=== PATIENT | male | born 1960 | race Caucasian/White ===

== ENCOUNTER 2017-07-27 11:54 | Inpatient (IN) | payer MEDICARE, MEDICAID ==
[~2017-07-27] VITALS: Ht 172.7 cm; Wt 107.1 kg
[~2017-07-27 11:54] MED LIST: ASPI-867 PO; ATOR-2 PO; CLOP75TA16 PO; COMP1EAC MC; CPAP; GABA300S PO; HYDR-3511; INSU100C11 SQ; LANS30CA52; LISI2.5T47 PO; METF10002 PO; PROSOL IH; PROT40 PO; TERA2CAP4 PO; VICTOZA PO; proair hfa
[2017-07-27] MEDS ORDERED: DILTIAZEM HCL 5MG/ML 5ML VIAL IV ONE (13:00)
[2017-07-27] MEDS ORDERED: CALCIUM GLUCONATE 100MG/ML 10ML VIAL IV ONE (13:00)
[2017-07-27] MEDS ORDERED: DILTIAZEM HCL 125 MG in DEXT 5% WATER 100 ML IV ONE (13:00)
[2017-07-27] MEDS ORDERED: CALCIUM GLUCONATE 1,000 MG in DEXTROSE 5% WATER 50 ML IV SCH (13:30)
[2017-07-27] MEDS ORDERED: DILTIAZEM HCL 125 MG in DEXT 5% WATER 100 ML IV SCH (13:30)
[2017-07-27] MEDS ORDERED: MORPHINE SULFATE 4 MG/ML CPJ (NOT FOR IM USE) IV ONE ×2 (14:00→18:00)
[2017-07-27 14:53] LABS: HEMATOCRIT 40.2 % (42.0-52.0); HEMOGLOBIN 13.7 g/dL (14.0-18.0); MEAN CORPUSCULAR HEMOGLOBIN 29.6 pg (28.0-32.0); MEAN CORPUSCULAR VOLUME 87.1 fL (80.0-94.0); PLATELET 207 x1000/uL (130-400); RED BLOOD CELL COUNT 4.62 mill/uL (4.7-6.1); RED CELL DISTRIBUTION WIDTH 14.1 % (11.6-14.6)
[2017-07-27 14:57] LABS: PARTIAL THROMBOPLASTIN TIME 28.3 sec (23.4-31.0); PROTHROMBIN TIME 10.8 sec (9.4-11.6)
[2017-07-27 15:06] LABS: CARBON DIOXIDE 26 mEq/L (21-32); CHLORIDE 106 mEq/L (98-107); TROPONIN I 0.21 ng/mL (0.00-0.04)
[2017-07-27 16:30] LABS: *AMPHETAMINES SCREEN URINE NEGATIVE (NEGATIVE); *BARBITURATES SCREEN URINE NEGATIVE (NEGATIVE); *BENZODIAZEPINES SCREEN URINE PRESUMTIVE POSITIVE (NEGATIVE); *COCAINE SCREEN URINE NEGATIVE (NEGATIVE); CANNABINOID URINE SCREEN PRESUMTIVE POSITIVE (NEGATIVE); METHADONE URINE SCREEN NEGATIVE (NEGATIVE); OPIATES URINE SCREEN PRESUMTIVE POSITIVE (NEGATIVE); PHENCYCLIDINE URINE SCREEN NEGATIVE (NEGATIVE)
[2017-07-27] MEDS: MORPHINE SULFATE 4 MG/ML CPJ (NOT FOR IM USE) IV PRN (17:07)
[2017-07-27] MEDS ORDERED: METOPROLOL TARTRATE 5MG/5ML VIAL IV ONE (18:00)
[2017-07-27] MEDS ORDERED: ASPIRIN 325MG EC TABLET PO ONE (18:00)
[2017-07-27] MEDS ORDERED: ATORVASTATIN CALCIUM 40MG TABLET PO SCH (21:00)
[2017-07-27] MEDS ORDERED: IPRATROPIUM/ALBUTEROL 0.5-3(2.5)MG/3ML NEB INH PRN (22:15)
[2017-07-27] MEDS ORDERED: ACETAMINOPHEN 325MG TABLET PO PRN (22:15)
[2017-07-27] MEDS: METOPROLOL TARTRATE 25MG TABLET PO SCH (22:21)
[2017-07-27] MEDS ORDERED: INSULIN REGULAR (HUMULIN R) 300UNITS/3ML SUBCUT NR (22:30)
[2017-07-27 23:39] VITALS: BP 126/75
[2017-07-28] VITALS (12 sets, daily range): BP systolic 88–130; BP diastolic 36–80
[2017-07-28] MEDS ORDERED: ENOXAPARIN 100MG/ML SYR SUBCUT SCH
[2017-07-28] MEDS ORDERED: ENOXAPARIN 120MG/0.8ML SYR SUBCUT SCH
[2017-07-28] MEDS ORDERED: DEXTROSE 50% WATER 50ML SYRINGE IV PRN (00:15)
[2017-07-28] MEDS: IPRATROPIUM/ALBUTEROL 0.5-3(2.5)MG/3ML NEB HHN SCH ×4 (00:26→19:39)
[2017-07-28] MEDS: MORPHINE SULFATE 4 MG/ML CPJ (NOT FOR IM USE) IV PRN ×2 (00:28→06:38)
[2017-07-28] MEDS: BLOOD SUGAR DIAGNOSTIC STRIP TEST SCH ×4 (05:45→21:00)
[2017-07-28] MEDS: PANTOPRAZOLE 40MG DR TABLET PO SCH (05:47)
[2017-07-28] MEDS ORDERED: DILTIAZEM HCL 60MG TABLET PO SCH (06:00)
[2017-07-28 07:08] LABS: BASOPHILS % 0.5 % (0.0-2.0); EOSINOPHILS % 2.7 % (0.0-5.0); HEMATOCRIT. 40.9 % (42.0-52.0); HEMOGLOBIN. 13.8 g/dL (14.0-18.0); LYMPHOCYTES % 26.5 % (20.0-50.0); MEAN CORPUSCULAR HEMOGLOBIN 29.8 pg (28.0-32.0); MEAN CORPUSCULAR VOLUME 88.3 fL (80.0-94.0); MEAN PLATELET VOLUME 8.6 fl (7.4-10.4); MONOCYTES % 8.9 % (2.0-8.0); NEUTROPHILS % 61.4 % (40.0-76.0); PLATELET 186 x1000/uL (130-400); RED BLOOD CELL COUNT 4.63 mill/uL (4.7-6.1); RED CELL DISTRIBUTION WIDTH 14.1 % (11.6-14.6)
[2017-07-28] MEDS: INSULIN LISPRO 100 UNITS/ML SUBCUT SCH ×4 (08:13→22:50)
[2017-07-28] MEDS: ASPIRIN 81MG EC TABLET PO SCH (08:14)
[2017-07-28] MEDS: GABAPENTIN 400MG CAPSULE PO SCH ×2 (08:15→17:48)
[2017-07-28] MEDS: METOPROLOL TARTRATE 25MG TABLET PO SCH (08:17)
[2017-07-28 08:22] LABS: CARBON DIOXIDE 24 mEq/L (21-32); CHLORIDE 108 mEq/L (98-107); TROPONIN I 0.24 ng/mL (0.00-0.04)
[2017-07-28] MEDS ORDERED: CLOPIDOGREL 75MG TABLET PO SCH ×2 (09:00)
[2017-07-28] MEDS ORDERED: INFLUENZA VIRUS VACCINE 0.5ML SYR IM ONE (10:00)
[2017-07-28] MEDS: INSULIN DETEMIR UD 100 UNITS/ML SYR SUBCUT SCH ×2 (10:39→22:00)
[2017-07-28] MEDS: HYDROMORPHONE HCL/PF 2MG/ML CPJ IV PRN ×3 (12:02→22:37)
[2017-07-28] MEDS: DILTIAZEM HCL 90MG TABLET PO SCH ×2 (12:09→21:00)
[2017-07-28] MEDS ORDERED: MAGNESIUM 1 G PREMIX 100 ML IV NR (13:00)
[2017-07-28] MEDS: SODIUM CHLORIDE 0.9% INJ 3ML FLUSH IVF SCH ×2 (13:41→22:57)
[2017-07-28] MEDS: APIXABAN 5 MG TABLET PO SCH (17:47)
[2017-07-28] MEDS ORDERED: ATORVASTATIN CALCIUM 40MG TABLET PO SCH (21:00)
[2017-07-28] MEDS ORDERED: TERAZOSIN HCL 1MG CAPSULE PO SCH (21:00)
[2017-07-29] VITALS (8 sets, daily range): BP systolic 96–124; BP diastolic 28–67
[2017-07-29] MEDS: IPRATROPIUM/ALBUTEROL 0.5-3(2.5)MG/3ML NEB HHN SCH ×5 (00:37→08:00)
[2017-07-29] MEDS: HYDROMORPHONE HCL/PF 2MG/ML CPJ IV PRN (04:56)
[2017-07-29] MEDS: BLOOD SUGAR DIAGNOSTIC STRIP TEST SCH ×2 (06:50→10:37)
[2017-07-29] MEDS: SODIUM CHLORIDE 0.9% INJ 3ML FLUSH IVF SCH (06:58)
[2017-07-29] MEDS: PANTOPRAZOLE 40MG DR TABLET PO SCH (06:58)
[2017-07-29] MEDS: ASPIRIN 81MG EC TABLET PO SCH (08:01)
[2017-07-29] MEDS: DILTIAZEM HCL 90MG TABLET PO SCH (08:01)
[2017-07-29] MEDS: APIXABAN 5 MG TABLET PO SCH (08:01)
[2017-07-29] MEDS: GABAPENTIN 400MG CAPSULE PO SCH (08:01)
[2017-07-29] MEDS: INSULIN LISPRO 100 UNITS/ML SUBCUT SCH ×2 (08:03→12:20)
[2017-07-29] MEDS: MORPHINE SULFATE 4 MG/ML CPJ (NOT FOR IM USE) IV PRN (10:36)
[2017-07-29] MEDS: INSULIN DETEMIR UD 100 UNITS/ML SYR SUBCUT SCH ×2 (10:37)
[2017-07-31] MEDS ORDERED: APIXABAN 5 MG TABLET PO STA (14:57)
== END 2017-07-29 12:45 | disposition home or self-care (01) | DRG 73 ==
LOC: ER 13:05 → 3WST 14:21 → EDBEDREQSVC 14:21 → ENRESERV 18:44
PROVIDERS: ADMIT Internal Medicine; ATTEND Internal Medicine
DX: G90.8 Other disorders of autonomic nervous system (principal); J96.00 Acute respiratory failure, unspecified whether with hypoxia or hypercapnia; I24.9 Acute ischemic heart disease, unspecified; I11.0 Hypertensive heart disease with heart failure; I50.9 Heart failure, unspecified; I48.91 Unspecified atrial fibrillation; J44.9 Chronic obstructive pulmonary disease, unspecified; E11.9 Type 2 diabetes mellitus without complications; W19.XXXA Unspecified fall, initial encounter; E78.5 Hyperlipidemia, unspecified; I25.119 Atherosclerotic heart disease of native coronary artery with unspecified angina pectoris; E78.00 Pure hypercholesterolemia, unspecified; F17.200 Nicotine dependence, unspecified, uncomplicated; N40.0 Benign prostatic hyperplasia without lower urinary tract symptoms; E66.09 Other obesity due to excess calories; M54.5 Low back pain; G89.29 Other chronic pain; M17.10 Unilateral primary osteoarthritis, unspecified knee; Z79.82 Long term (current) use of aspirin; Z79.02 Long term (current) use of antithrombotics/antiplatelets; Z82.49 Family history of ischemic heart disease and other diseases of the circulatory system; Z83.3 Family history of diabetes mellitus; I25.2 Old myocardial infarction; Z79.4 Long term (current) use of insulin; Z95.5 Presence of coronary angioplasty implant and graft; Z68.35 Body mass index [BMI] 35.0-35.9, adult; Z79.51 Long term (current) use of inhaled steroids; Z79.899 Other long term (current) drug therapy; Z79.84 Long term (current) use of oral hypoglycemic drugs
CPT/HCPCS: 36415; 71010; 80048; 80053; 80061; 80305; 82962; 83735; 84443; 84484; 85025; 85027; 85610; 85730; 90686; 93005; 93306; 94003; 94640; 94664; 96374; 99291; J0610; J1170; J1650; J1815; J2270; J3475; J3490; J7050; J7060; J7620

== ENCOUNTER 2017-07-31 14:22 | Inpatient (IN) | payer MEDICARE, MEDICAID ==
[~2017-07-31] VITALS: Ht 172.7 cm; Wt 106.7 kg
[2017-07-31] MEDS ORDERED: DILTIAZEM HCL 5MG/ML 5ML VIAL IV ONE ×2 (15:00→15:15)
[2017-07-31] MEDS ORDERED: DILTIAZEM HCL 125 MG in DEXT 5% WATER 100 ML IV ONE (15:00)
[2017-07-31] MEDS ORDERED: MORPHINE SULFATE 4 MG/ML CPJ (NOT FOR IM USE) IV ONE (15:15)
[2017-07-31] MEDS ORDERED: ONDANSETRON HCL 4MG/2ML VIAL IV ONE (15:15)
[2017-07-31] MEDS ORDERED: ASPIRIN 81MG TABLET PO ONE (15:15)
[2017-07-31 15:24] LABS: BASOPHILS % 0.4 % (0.0-2.0); EOSINOPHILS % 1.7 % (0.0-5.0); HEMATOCRIT. 36.9 % (42.0-52.0); HEMOGLOBIN. 12.6 g/dL (14.0-18.0); LYMPHOCYTES % 21.8 % (20.0-50.0); MEAN CORPUSCULAR HEMOGLOBIN 29.8 pg (28.0-32.0); MEAN CORPUSCULAR VOLUME 87.2 fL (80.0-94.0); MEAN PLATELET VOLUME 8.4 fl (7.4-10.4); MONOCYTES % 8.6 % (2.0-8.0); NEUTROPHILS % 67.5 % (40.0-76.0); PLATELET 171 x1000/uL (130-400); RED BLOOD CELL COUNT 4.24 mill/uL (4.7-6.1); RED CELL DISTRIBUTION WIDTH 14.2 % (11.6-14.6)
[2017-07-31 15:27] LABS: CHLORIDE 107 mEq/L (98-107)
[2017-07-31 15:29] LABS: CARBON DIOXIDE 24 mEq/L (21-32)
[2017-07-31 15:35] LABS: INR 1.1
[2017-07-31 15:36] LABS: TROPONIN I 0.32 ng/mL (0.00-0.04)
[2017-07-31] MEDS ORDERED: DILTIAZEM HCL 125 MG in DEXTROSE 5% WATER 125 ML IV NR (15:45)
[2017-07-31 20:00] VITALS: BP 105/66
[2017-07-31 20:37] VITALS: BP 105/66
[2017-07-31 22:00] VITALS: BP 124/99
[2017-07-31] MEDS ORDERED: DEXTROSE 50% WATER 50ML SYRINGE IV PRN (22:45)
[2017-07-31] MEDS ORDERED: DILTIAZEM HCL 125 MG in DEXT 5% WATER 100 ML IV PRN (22:45)
[2017-07-31] MEDS: ATORVASTATIN CALCIUM 20MG TABLET PO SCH (23:25)
[2017-07-31] MEDS: BLOOD SUGAR DIAGNOSTIC STRIP TEST SCH (23:31)
[2017-07-31] MEDS: HYDROCODONE/ACETAMINOPHEN 10/325MG TABLET PO PRN (23:36)
[2017-07-31] MEDS ORDERED: INSULIN DETEMIR UD 100 UNITS/ML SYR SUBCUT SCH (23:45)
[2017-08-01] VITALS (12 sets, daily range): BP systolic 91–119; BP diastolic 49–72
[2017-08-01] MEDS ORDERED: MAGNESIUM/ALUMINUM HYDROXIDE/SIMETHICONE 30ML UDC PO PRN
[2017-08-01] MEDS ORDERED: LACTULOSE 20G/30ML UDC PO SCH
[2017-08-01 00:24] LABS: CREATINE KINASE MB FRACTION 1.5 ng/mL (0.5-3.6); TROPONIN I 0.34 ng/mL (0.00-0.04)
[2017-08-01] MEDS: INSULIN LISPRO 100 UNITS/ML SUBCUT SCH ×5 (00:26→21:37)
[2017-08-01] MEDS: BLOOD SUGAR DIAGNOSTIC STRIP TEST SCH ×4 (05:59→20:54)
[2017-08-01 06:39] LABS: BASOPHILS % 0.4 % (0.0-2.0); EOSINOPHILS % 2.4 % (0.0-5.0); HEMATOCRIT. 36.3 % (42.0-52.0); HEMOGLOBIN. 12.3 g/dL (14.0-18.0); LYMPHOCYTES % 25.5 % (20.0-50.0); MEAN CORPUSCULAR HEMOGLOBIN 29.9 pg (28.0-32.0); MEAN PLATELET VOLUME 8.5 fl (7.4-10.4); MONOCYTES % 8.6 % (2.0-8.0); NEUTROPHILS % 63.1 % (40.0-76.0); PLATELET 182 x1000/uL (130-400); RED BLOOD CELL COUNT 4.12 mill/uL (4.7-6.1); RED CELL DISTRIBUTION WIDTH 14.2 % (11.6-14.6)
[2017-08-01] MEDS: PANTOPRAZOLE 40MG DR TABLET PO SCH (07:09)
[2017-08-01] MEDS: HYDROCODONE/ACETAMINOPHEN 10/325MG TABLET PO PRN ×3 (07:11→21:38)
[2017-08-01 07:15] LABS: CARBON DIOXIDE 27 mEq/L (21-32); CHLORIDE 107 mEq/L (98-107)
[2017-08-01 07:20] LABS: CREATINE KINASE MB FRACTION 1.7 ng/mL (0.5-3.6); TROPONIN I 0.27 ng/mL (0.00-0.04)
[2017-08-01] MEDS: ASPIRIN 81MG TABLET PO SCH (08:33)
[2017-08-01] MEDS: APIXABAN 5 MG TABLET PO SCH ×2 (08:33→17:58)
[2017-08-01] MEDS: GABAPENTIN 400MG CAPSULE PO SCH ×2 (08:33→17:58)
[2017-08-01] MEDS ORDERED: METHYLPREDNISOLONE SOD SUCC 40 MG/ML VIAL IV NR (09:00)
[2017-08-01] MEDS ORDERED: CLOPIDOGREL 75MG TABLET PO SCH (09:00)
[2017-08-01 09:54] LABS: BG BASE EXCESS -2.2 mmol/L (-2.0-2.0); BG CARBOXYHEMOGLOBIN 1.1 % (0.5-1.5); BG DEOXYHEMOGLOBIN 6.8 % (0.0-5.0); BG FRACTION INSPIRED OXYGEN 32; BG HCO3 ACT 23.9 mmol/L (22.0-26.0); BG METHEMOGLOBIN 0.3 % (0.0-1.5); BG OXYGEN SATURATION 93.1 % (92.0-98.5); BG OXYHEMOGLOBIN 91.8 % (94.0-97.0); BG PCO2 45.9 mmHg (35.0-45.0); BG PH 7.334 (7.350-7.450); BG PO2 68.3 mmHg (75.0-100.0); BG SAMPLE SITE RIGHT BRACHIAL; BG TOTAL HEMOGLOBIN 13.1 g/dL (12.0-18.0); BG VENT MODE NASAL CANNULA
[2017-08-01] MEDS ORDERED: DILTIAZEM HCL 180MG CAPSULE CD 24HR PO SCH (10:00)
[2017-08-01] MEDS: FUROSEMIDE 40MG/4ML VIAL IVP SCH ×2 (10:02→17:58)
[2017-08-01] MEDS: IPRATROPIUM/ALBUTEROL 0.5-3(2.5)MG/3ML NEB HHN PRN ×3 (10:10→20:16)
[2017-08-01] MEDS: ALPRAZOLAM 0.25 MG TABLET PO SCH (20:49)
[2017-08-01] MEDS: ATORVASTATIN CALCIUM 20MG TABLET PO SCH (20:49)
[2017-08-01] MEDS: TERAZOSIN HCL 1MG CAPSULE PO SCH (20:50)
[2017-08-01] MEDS: INSULIN DETEMIR UD 100 UNITS/ML SYR SUBCUT SCH (21:37)
[2017-08-01] MEDS: DILTIAZEM HCL 90MG TABLET PO SCH (21:38)
[2017-08-02] VITALS (12 sets, daily range): BP systolic 97–128; BP diastolic 51–76
[2017-08-02] MEDS: IPRATROPIUM/ALBUTEROL 0.5-3(2.5)MG/3ML NEB HHN PRN ×2 (00:21→04:26)
[2017-08-02] MEDS: HYDROCODONE/ACETAMINOPHEN 10/325MG TABLET PO PRN ×3 (04:38→20:29)
[2017-08-02] MEDS: DILTIAZEM HCL 90MG TABLET PO SCH ×3 (06:00→21:25)
[2017-08-02 06:18] LABS: BASOPHILS % 0.1 % (0.0-2.0); EOSINOPHILS % 0.1 % (0.0-5.0); HEMATOCRIT. 35.5 % (42.0-52.0); HEMOGLOBIN. 11.9 g/dL (14.0-18.0); LYMPHOCYTES % 8.2 % (20.0-50.0); MEAN CORPUSCULAR HEMOGLOBIN 29.6 pg (28.0-32.0); MEAN CORPUSCULAR VOLUME 88.3 fL (80.0-94.0); MEAN PLATELET VOLUME 8.8 fl (7.4-10.4); MONOCYTES % 6.3 % (2.0-8.0); NEUTROPHILS % 85.3 % (40.0-76.0); PLATELET 195 x1000/uL (130-400); RED BLOOD CELL COUNT 4.02 mill/uL (4.7-6.1); RED CELL DISTRIBUTION WIDTH 14.3 % (11.6-14.6)
[2017-08-02] MEDS: PANTOPRAZOLE 40MG DR TABLET PO SCH (06:37)
[2017-08-02] MEDS: BLOOD SUGAR DIAGNOSTIC STRIP TEST SCH ×4 (06:45→20:33)
[2017-08-02] MEDS: INSULIN LISPRO 100 UNITS/ML SUBCUT SCH ×3 (07:57→21:21)
[2017-08-02] MEDS: FUROSEMIDE 40MG/4ML VIAL IVP SCH ×2 (08:19→16:54)
[2017-08-02] MEDS: APIXABAN 5 MG TABLET PO SCH ×2 (08:19→16:54)
[2017-08-02] MEDS: ASPIRIN 81MG TABLET PO SCH (08:19)
[2017-08-02] MEDS: GABAPENTIN 400MG CAPSULE PO SCH ×2 (08:24→08:54)
[2017-08-02] MEDS ORDERED: INSULIN LISPRO 100 UNITS/ML SUBCUT NR (08:45)
[2017-08-02] MEDS: ALPRAZOLAM 0.25 MG TABLET PO SCH ×2 (08:53→16:53)
[2017-08-02] MEDS ORDERED: DILTIAZEM HCL 90MG TABLET PO SCH (09:00)
[2017-08-02] MEDS ORDERED: INSULIN LISPRO 100 UNITS/ML SUBCUT ONE (13:15)
[2017-08-02] MEDS ORDERED: DEXTROSE 50% WATER 50ML SYRINGE IV PRN (13:30)
[2017-08-02] MEDS ORDERED: HYDROCODONE/ACETAMINOPHEN 10/325MG TABLET PO PRN (14:00)
[2017-08-02] MEDS ORDERED: LEVOFLOXACIN 500MG PREMIX 100 ML IV SCH (16:00)
[2017-08-02] MEDS ORDERED: BLOOD SUGAR DIAGNOSTIC STRIP TEST SCH (16:50)
[2017-08-02] MEDS: LACTULOSE 20G/30ML UDC PO PRN (16:53)
[2017-08-02] MEDS: ATORVASTATIN CALCIUM 20MG TABLET PO SCH (20:28)
[2017-08-02] MEDS: TERAZOSIN HCL 1MG CAPSULE PO SCH ×2 (20:32→21:00)
[2017-08-02] MEDS: INSULIN DETEMIR UD 100 UNITS/ML SYR SUBCUT SCH (21:20)
[2017-08-03] VITALS (8 sets, daily range): BP systolic 102–120; BP diastolic 63–82
[2017-08-03] MEDS: HYDROCODONE/ACETAMINOPHEN 10/325MG TABLET PO PRN ×2 (01:29→05:41)
[2017-08-03] MEDS: DILTIAZEM HCL 90MG TABLET PO SCH (05:35)
[2017-08-03] MEDS ORDERED: KETOROLAC 10MG TABLET PO SCH (05:45)
[2017-08-03] MEDS: BLOOD SUGAR DIAGNOSTIC STRIP TEST SCH ×2 (05:51→11:59)
[2017-08-03] MEDS ORDERED: KETOROLAC 10MG TABLET PO PRN (06:00)
[2017-08-03] MEDS: FUROSEMIDE 40MG/4ML VIAL IVP SCH (06:30)
[2017-08-03] MEDS: INSULIN LISPRO 100 UNITS/ML SUBCUT SCH ×2 (06:31→12:20)
[2017-08-03 07:00] LABS: BASOPHILS % 0.4 % (0.0-2.0); EOSINOPHILS % 2.1 % (0.0-5.0); HEMATOCRIT. 36.1 % (42.0-52.0); HEMOGLOBIN. 12.6 g/dL (14.0-18.0); MEAN CORPUSCULAR HEMOGLOBIN 30.6 pg (28.0-32.0); MEAN CORPUSCULAR VOLUME 87.9 fL (80.0-94.0); MEAN PLATELET VOLUME 8.5 fl (7.4-10.4); MONOCYTES % 7.3 % (2.0-8.0); NEUTROPHILS % 63.2 % (40.0-76.0); PLATELET 211 x1000/uL (130-400); RED BLOOD CELL COUNT 4.11 mill/uL (4.7-6.1); RED CELL DISTRIBUTION WIDTH 13.9 % (11.6-14.6)
[2017-08-03 07:32] LABS: CARBON DIOXIDE 31 mEq/L (21-32); CHLORIDE 98 mEq/L (98-107)
[2017-08-03] MEDS: LACTULOSE 20G/30ML UDC PO PRN (08:55)
[2017-08-03] MEDS: ALPRAZOLAM 0.25 MG TABLET PO SCH (08:55)
[2017-08-03] MEDS: ASPIRIN 81MG TABLET PO SCH (08:55)
[2017-08-03] MEDS: APIXABAN 5 MG TABLET PO SCH (08:55)
[2017-08-03] MEDS ORDERED: FAMOTIDINE 20MG TABLET PO SCH (09:00)
[2017-08-03] MEDS ORDERED: INSULIN DETEMIR UD 100 UNITS/ML SYR SUBCUT SCH (10:00)
[2017-08-04] MEDS ORDERED: LEVOFLOXACIN 500MG TABLET PO SCH (11:00)
== END 2017-08-03 13:12 | disposition home or self-care (01) | DRG 291 ==
LOC: ER 16:12 → 3WST 16:25 → EDBEDREQSVC 16:26 → EDBEDREQ 16:26 → EDBEDREQTM 16:26 → ENRESERV 17:53
PROVIDERS: ADMIT Internal Medicine; ATTEND Internal Medicine
DX: I11.0 Hypertensive heart disease with heart failure (principal); J96.20 Acute and chronic respiratory failure, unspecified whether with hypoxia or hypercapnia; Z79.01 Long term (current) use of anticoagulants; J44.1 Chronic obstructive pulmonary disease with (acute) exacerbation; E66.01 Morbid (severe) obesity due to excess calories; E11.9 Type 2 diabetes mellitus without complications; E66.9 Obesity, unspecified; E78.5 Hyperlipidemia, unspecified; I25.10 Atherosclerotic heart disease of native coronary artery without angina pectoris; J45.909 Unspecified asthma, uncomplicated; M19.90 Unspecified osteoarthritis, unspecified site; I48.91 Unspecified atrial fibrillation; Z79.4 Long term (current) use of insulin; Z95.5 Presence of coronary angioplasty implant and graft; Z88.6 Allergy status to analgesic agent; Z79.899 Other long term (current) drug therapy; Z79.82 Long term (current) use of aspirin; Z90.49 Acquired absence of other specified parts of digestive tract; Z68.35 Body mass index [BMI] 35.0-35.9, adult; I50.33 Acute on chronic diastolic (congestive) heart failure
CPT/HCPCS: 36415; 36600; 71010; 80048; 80053; 80162; 82375; 82550; 82553; 82805; 82962; 83880; 84484; 85025; 85610; 93005; 94640; 96374; 96375; 99291; J1815; J1940; J1956; J2270; J2405; J2920; J3490; J7050; J7060; J7620; A4315